=== PATIENT | male | born 1930 | race Caucasian/White ===

== ENCOUNTER 2018-03-30 21:00 | Emergency (ER) | payer MEDICARE, OTHER ==
--- NOTE | 2018-03-30 23:09 | EDM.PDOC ---
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 Lacerations/skin tears to forehead and left hand. - Related Data Allergies Allergy/AdvReac Type Severity Reaction Status Date / Time No Known Allergies Allergy Verified 03/30/18 21:21 Home Meds: Home Meds NK [No Known Home Meds] 03/30/18 [History] Past Medical History - Past Surgical History GI Surgical History: Reports: Hernia, Inguinal Musculoskeletal Surgical History: Reports: Arthroscopic Knee Social & Family History - Tobacco Use Smoking Status *Q: Never Smoker ED ROS GENERAL - Review of Systems Review Of Systems: ROS reveals no pertinent complaints other than HPI. ED EXAM, SKIN/RASH Exam: See Below Exam Limited By: No Limitations General Appearance: Alert, WD/WN, No Apparent Distress Eye Exam: Bilateral Eye: Normal Inspection Throat/Mouth: Normal Inspection Head: Other (approx 3 cm laceration just above left eyebrow. Superficial.) Neck: Supple, Full Range of Motion Extremities: Other (about 2 cm skin tear to dorsum left hand across mcp joints of 4th and 5th fingers.) Course - Vital Signs Last Recorded V/S: Last Vital Signs Temp 36.8 C 03/30/18 21:26 Pulse 82 03/30/18 21:26 Resp 16 03/30/18 21:26 BP 173/85 H 03/30/18 21:26 Pulse Ox 94 L 03/30/18 21:26 - Orders/Labs/Meds Orders: Active Orders 24 hr Category Date Time Status Head wo Cont [CT] Stat Exams 03/30/18 22:12 Taken - Re-Assessments/Exams Free Text/Narrative Re-Assessment/Exam: 03/31/18 07:25 Laceration repair. Both wounds flushed with saline. Hand wound flap repositioned repaired with adhesive. Eyebrow wound edges re-approximated with 4 steri-strips then dermabond applied. Head CT nothing acute Departure - Departure Time of Disposition: 23:07 Disposition: Home, Self-Care 01 Condition: Fair Clinical Impression: Eyebrow laceration, Skin tear of left hand without complication - Discharge Information Instructions: Tissue Adhesive Wound Care, [id number] Referrals: PCP,None [Primary Care Provider] - Forms: ED Department Discharge Additional Instructions: Leave the tape and glue in place for as long as possible but at least for 1 week. Don't put anything on the wounds that might stick to the glue. - My Orders Last 24 Hours: My Active Orders 03/30/18 22:12 Head wo Cont [CT] Stat - Assessment/Plan Last 24 Hours: My Active Orders 03/30/18 22:12 Head wo Cont [CT] Stat
== END 2018-03-30 23:19 | disposition home or self-care (01) ==
LOC: JP.ED 21:00
DX: S01.112A Laceration without foreign body of left eyelid and periocular area, initial encounter (principal); S61.412A Laceration without foreign body of left hand, initial encounter; W19.XXXA Unspecified fall, initial encounter; Y92.009 Unspecified place in unspecified non-institutional (private) residence as the place of occurrence of the external cause
CPT/HCPCS: 12001; 12013; 70450; 99284-25